=== PATIENT | male | born 2000 | race African-American/Black ===

== ENCOUNTER 2021-01-15 17:32 | Emergency (ER) | payer OTHER ==
[~2021-01-15] VITALS: Ht 167.6 cm; Wt 179.6 kg
[2021-01-15] MEDS ORDERED: KETO10TA2 PO (21:26)
[2021-01-15] MEDS ORDERED: ORPHENADRINE C100 MG PO (21:26)
== END 2021-01-15 21:58 | disposition home or self-care (01) ==
LOC: ER 17:32
DX: R07.89 Other chest pain (principal); M94.0 Chondrocostal junction syndrome [Tietze]; Z11.52 Encounter for screening for COVID-19

== ENCOUNTER → 2021-02-18 | Emergency (ER) | payer OTHER ==
[~2021-02-18] VITALS: Ht 152.4 cm; Wt 179.6 kg
[~2021-02-18] MED LIST: KETO10TA2 PO; ORPHENADRINE C100 MG PO
== END | disposition home or self-care (01) ==
LOC: ER 08:17
DX: B34.9 Viral infection, unspecified (principal); Z11.52 Encounter for screening for COVID-19